=== PATIENT | female | born 1960 | race Caucasian/White ===

== ENCOUNTER → 2025-01-09 | Outpatient (CLI) | payer MEDICARE, MEDICAID, SELFPAY ==
[2025-01-09 13:55] LABS: AST(SGOT) 17 U/L (<=31); Alanine Aminotransfer ALT/SGPT 6 U/L (<=34); Albumin, Serum 3.1 g/dL (3.4-4.8); Alkaline Phosphatase 91 U/L (35-104); Anion Gap 9 (5-15); BUN 22 mg/dL (4-19); BUN/Creat Ratio 11.5 RATIO (10-20); Calcium,Total 8.7 mg/dL (7.6-11.0); Carbon Dioxide 26.7 mmol/L (21.0-32.0); Chloride 106 mmol/L (98-108); Globulin 4.1 g/dL (2.2-4.2); Glucose 87 mg/dL (70-99); Potassium 4.1 mmol/L (3.3-5.1)
== END | disposition home or self-care (01) ==
LOC: LAB 12:09
PROVIDERS: Visit Provider Internal Medicine Cardiovascular Disease
DX: I48.0 Paroxysmal atrial fibrillation (principal); I10 Essential (primary) hypertension; Z79.899 Other long term (current) drug therapy
CPT/HCPCS: 36415; 80053; 84443